=== PATIENT | male | born 1960 ===

== ENCOUNTER 2017-07-18 00:39 | Emergency (ER) | payer OTHER ==
[2017-07-18] MEDS ORDERED: Sodium Chloride 3% for Inhalation 4 ML VIAL.NEB IH PRN (01:19)
--- NOTE | 2017-07-18 01:21 | ED PDOC ---
Lower Extremity Pain/Injury Chief Complaint (Provider): "my foot hurts and im coughing up blood" Additional Complaint(s): 56 y/o male, with unknown medical history, presents via EMS for evaluation of left foot pain, hemoptysis, and SOB. Pt underwent ruptured Left achilles tendon repair in [place] in mar 2017. For the last 15 days he has noticed worsening pain, swelling, and erythema of his left ankle and foot. No hx of traumatic injury or wound. Pain gradaully worsened to 5/10, intermittent, worse with ambulation. Unable to totally weight bear. He also noticed worsening patches of redness around his ankle and foot. Pt also reports cough, sob and hemoptysis. These symptoms have been going on for several months now. No hx of sick contacts exposure, [place], no fever/chills, weight loss, night sweats. No other complaints. PMD: none PsurgHx: achilles tendon repair Mar 2017 PMHx: unknown, never been checked by ALL: NKDA Social: denies ETOH abuse, former smoker, approx 4-5 ciggarettes per day for 5- 6 years, quit 4 years ago. Unknown work exposure. No drugs FamilyHx: unknown family hx <Yomi Mcintosh - Last Filed: 07/19/17 08:44> <Johnathan Burrell - Last Filed: 07/19/17 17:58> Time Seen by Provider: 07/18/17 00:50 Chief Complaint (Nursing): Lower Extremity Problem/Injury Supervising Attending Note - Supervising Attending Note The Documented history was done by the: Physician Space Sciences Director, Attending Physician The documented physical exam was done by the: Physician Space Sciences Director, Attending Physician The documented procedures were done by the: Physician Space Sciences Director, Attending Physician - Attestation: I have personally seen and examined this patient.: Yes I have fully participated in the care of the patient.: Yes I have reviewed all pertinent clinical information, including history, physical exam and plan: Yes <Johnathan Burrell - Last Filed: 07/19/17 17:58> Past Medical History Reviewed: Historical Data, Nursing Documentation, Vital Signs Vital Signs: Last Vital Signs Temp 97.8 F 07/18/17 00:46 Pulse 78 07/18/17 00:46 Resp 18 07/18/17 00:46 BP 121/78 07/18/17 00:46 Pulse Ox 99 07/18/17 00:46 - Family History Family History: States: Unknown Family Hx - Immunization History Hx Tetanus Toxoid Vaccination: No Hx Influenza Vaccination: No Hx Pneumococcal Vaccination: No <Yomi Mcintosh - Last Filed: 07/19/17 08:44> Reviewed: Historical Data Vital Signs: Last Vital Signs Temp 97.8 F 07/18/17 00:46 Pulse 78 07/18/17 00:46 Resp 18 07/18/17 00:46 BP 121/78 07/18/17 00:46 Pulse Ox 99 07/18/17 01:55 - Medical History PMH: No Chronic Diseases - Surgical History Surgical History: No Surg Hx <Johnathan Burrell - Last Filed: 07/19/17 17:58> - Home Medications Home Medications: Ambulatory Orders Medication Instructions Recorded Cephalexin [cephalexin] 500 mg PO TID #21 cap 07/18/17 Clotrimazole [Athlete's Foot] 14.2 gm TP DAILY #30 cream..g. 07/18/17 Sulfamethoxazole/Trimethoprim 1 tab PO BID #14 tab 07/18/17 [Bactrim DS 800 mg-160 mg] - Allergies Allergies/Adverse Reactions: Allergies Allergy/AdvReac Type Severity Reaction Status Date / Time No Known Allergies Allergy Unverified 01/31/14 07:23 Wells Criteria for PE - Wells Criteria for Pulmonary Embolism Clinical Signs and Symptoms of DVT: Yes P.E is #1 Diagnosis, or Equally Likely: No Heart Rate >100: No Immobilization at least 3 days;Surgery previous 4 weeks: No Previous, objectively diagnosed PE or DVT: No Hemoptysis: Yes Malignancy w/treatment within 6 months, or palliative: No Total Score: 4 <Yomi Mcintosh - Last Filed: 07/19/17 08:44> - Wells Criteria for Pulmonary Embolism Clinical Signs and Symptoms of DVT: Yes Hemoptysis: Yes Total Score: 4 <Johnathan Burrell - Last Filed: 07/19/17 17:58> Review of Systems Constitutional: Negative for: Fever, Chills, Sweats, Weight loss Eyes: Negative for: Vision Change ENT: Negative for: Nose Discharge, Nose Congestion, Throat Pain, Throat Swelling Cardiovascular: Negative for: Chest Pain, Palpitations, Orthopnea, Light Headedness Respiratory: Positive for: Cough, Shortness of Breath, Hemoptysis, SOB with Exertion, Sputum. Negative for: Pleuritic Pain, Wheezing Gastrointestinal: Negative for: Nausea, Vomiting, Abdominal Pain, Diarrhea, Constipation, Melena, Hematochezia, Hematemesis Genitourinary Male: Negative for: Dysuria, Frequency, Incontinence, Hematuria Musculoskeletal: Positive for: Leg Pain, Foot Pain. Negative for: Neck Pain, Shoulder Pain, Arm Pain, Back Pain Skin: Positive for: Rash Neurological: Negative for: Weakness, Numbness, Incoordination, Confusion Psych: Negative for: Anxiety, Depression, Suicidal ideation <Yomi Mcintosh - Last Filed: 07/19/17 08:44> ROS Statement: Except As Marked, All Systems Reviewed And Found Negative <Johnathan Burrell - Last Filed: 07/19/17 17:58> Physical Exam - Reviewed Nursing Documentation Reviewed: Yes Vital Signs Reviewed: Yes - Physical Exam Appears: Positive for: Non-toxic, No Acute Distress Head Exam: Positive for: ATRAUMATIC, NORMAL INSPECTION, NORMOCEPHALIC Skin: Positive for: Normal Color, Warm, Dry Eye Exam: Positive for: EOMI, PERRL. Negative for: Conjunctival injection, Scleral icterus ENT: Positive for: Normal ENT Inspection, Pharynx Is (clear ). Negative for: Nasal Congestion, Pharyngeal Erythema, Tonsillar Exudate Neck: Positive for: Normal, Painless ROM, Supple. Negative for: Pain On Movement Of Neck Cardiovascular/Chest: Positive for: Regular Rate, Rhythm. Negative for: Chest Non Tender, Edema, Gallop, JVD, Murmur, Bradycardia, Ectopy Respiratory: Positive for: Normal Breath Sounds, Decreased Breath Sounds (b/l lower lung taylor ). Negative for: Crackles, Rales, Rhonchi, Stridor, Wheezing , Respiratory Distress, Plerual Rub Pulses-Dorsalis Pedis (L): 2+ Pulses-Dorsalis Pedis (R): 2+ Pulses-Radial (L): 2+ Pulses-Radial (R): 2+ Gastrointestinal/Abdominal: Positive for: Normal Exam, Bowel Sounds (normal BS) , Soft. Negative for: Tenderness, Organomegaly, Mass, Distended, Guarding Back: Negative for: L CVA Tenderness, R CVA Tenderness Extremity: Positive for: Tenderness (posterior left ankle, left lateral aspect of foot ), Pedal Edema (left ankle/foot edema. Nonpitting. Left ankle/foot warmer than right. Erythematous with cellulitic changes ), Calf Tenderness ( left calf tenderness. 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, Oriented <Yomi Mcintosh - Last Filed: 07/19/17 08:44> - Reviewed Nursing Documentation Reviewed: Yes <Johnathan Burrell - Last Filed: 07/19/17 17:58> - Laboratory Results Result Diagrams: 07/18/17 02:45 07/18/17 02:45 - ECG O2 Sat by Pulse Oximetry: 99 - Progress ED Course And Treament: DD: left foot cellulitis, osetomylelitis, DVT, PE, pneumonia, tuberculosis, lung malignancy Plan: CBC CMP VBG Shock panel blood culture sputum culture coags EKG CTA ANGIO Left ankle/foot Xray podiatry consult pending <Yomi Mcintosh - Last Filed: 07/19/17 08:44> - Laboratory Results Result Diagrams: 07/18/17 02:45 07/18/17 02:45 <Johnathan Burrell - Last Filed: 07/19/17 17:58> Medical Decision Making Medical Decision Makin Patient is seen by podiatry resident and cleared for discharge with dx cellulitis. [address] reviewed and reveals no PE. 0630 Patient still complaining of regurgitation, cough, halitosis, smelly breath , and throat discomfort in addition to coughing up bloody sputum. Considering Zenker diverticulum. CT neck ordered. <Johnathan Burrell - Last Filed: 07/19/17 17:58> Disposition <Yomi Mcintosh - Last Filed: 07/19/17 08:44> - Patient ED Disposition Is Patient to be Admitted: Transfer of Care Doctor Will See Patient In The: Office Counseled Patient/Family Regarding: Studies Performed, Diagnosis, Need For Followup - Disposition Disposition: Transfer of Care Disposition Time: 07:00 Patient Signed Over To: Kristian Rico <Johnathan Burrell Saul - Last Filed: 07/19/17 17:58> - Clinical Impression Clinical Impression: Cellulitis of left ankle, Hemoptysis, Tinea pedis - Disposition Referrals: [facility] [Outside] (2 to 3 days) Condition: GOOD Additional Instructions: Take your medications as instructed. Follow up with your PCP in 2-3 days. Prescriptions: Cephalexin [cephalexin] 500 mg PO TID #21 cap Clotrimazole [Athlete's Foot] 14.2 gm TP DAILY #30 cream..g. Sulfamethoxazole/Trimethoprim [Bactrim DS 800 mg-160 mg] 1 tab PO BID #14 tab Instructions: Coughing up Blood, Cellulitis (Skin Infection), Adult (DC) Forms: [employer] (South African) Print Language: COSTA RICAN
--- NOTE | 2017-07-18 02:46 | CP.PCM.PN ---
Subjective - Date & Time of Evaluation Date of Evaluation: 07/18/17 Time of Evaluation: 02:38 - Subjective Subjective: 56M with unknown PMHx seen in ED complaining of left ankle swelling, redness and pain. Patient states that he has noticed these changes over the last three days, especially while walking and says that they have gradually become worse. The changes are isolated to his distal left leg, just proximal to the ankle joint and are seen circumfrentially around the leg. Patient denies seeking any medical treatment for these changes up to this point and denies taking any medication to try and alleviate his symptoms. Denies any trauma, ankle twists or falls over the last week. Patient also states that he suffers from anxiety and depression and has been spitting/coughing up blood over the last several months, especially at night. He currently takes Trazadone for his depression and denies any other medications. He denies any known history of gout. He denies any known allergies. He also relates that on 04/15/17 he had an Achilles tendon repair performed in [place], [place] and underwent three sessions of physical therapy but has since stopped going because he lost insurance coverage. He states that he is a former smoker, social EtOH and denies illicit drug use. Patient is AAO x 3 for entirety of the examination. Denies any further pedal complaints at this time. Denies any recent N/V/F/C/CP/SOB/D/ poterior calf pain when squeezed Objective - Vital Signs/Intake and Output Vital Signs (last 24 hours): Temp Pulse Resp BP Pulse Ox 97.8 F 78 18 121/78 99 07/18/17 00:46 07/18/17 00:46 07/18/17 00:46 07/18/17 00:46 07/18/17 01:55 - Constitutional Appears: Well, Non-toxic, No Acute Distress - Extremities Exam Additional comments: LE focused exam: Vasc: DP/PT pulses fully palpable 2/4 b/l. Skin temperature increased to distal left leg. CFT < 3 seconds to all digits b/l. Moderate, 1+ pitting edema noted circumstantially to distal left leg Neuro: Epicritic and protective sensation grossly intact b/l Derm: Moderate erythematous changes noted circumferentially around distal left leg. Mocassin pattern tinea pedis noted to left foot. Well healed cicatrix consistent with previous achilles tendon surgery appreciated to posterior heel and leg. Otherwise, no open lesions, wounds, maceration, xerosis, abnormal pigmentations or abnormal growths noted b/l. Interdigital skin is clean/dry/ intact MSK: Minimal POP to distal anterior leg in area of maximal erythematous changes. No POP to medial or lateral malleoli, styloid process of fifth metatarsal, navicular tuberosity or along the length of extensor, flexor and peroneal tendons. AROM and PROM WNL to both ankle joints. MMT 5/5 b/l in all major muscle groups - Neurological Exam Neurological Exam: Alert, Awake, Oriented x3 - Psychiatric Exam Psychiatric exam: Anxious. absent: Agitated Assessment and Plan - Assessment and Plan (Free Text) Assessment: 56M with stated PMHx of anxiety and depression and otherwise unknown PMHx seen in ED for probable cellulitic changes to distal left leg Plan: Patient seen and evaluated in ED Plan discussed with attending Dr. Evans Charts, labs, vitals reviewed Afebrile, WBC 10.3 Foot and ankle xrays unremarkable for fracture or dislocation, soft tissue edema noted, no soft tissue emphysema seen Per Medicine team, pt to be admitted to hospital for cellulitic changes and hemoptysis Start on empiric IV abx per ED recommendation ID consult ordered - Dr. [place] No dressing needed at this time Podiatry will continue to follow while patient is in house
[2017-07-18 02:48] LABS: MEAN CORPUSCULAR HEMOGLOBIN 32.4 pg (27.0-31.0); MEAN CORPUSCULAR HGB CONC 32.8 g/dL (33.0-37.0); RBC 4.01 Mil/uL (4.40-5.90); RED CELL DISTRIBUTION WIDTH 14.3 % (11.5-14.5); WHITE BLOOD COUNT 10.3 K/uL (4.8-10.8)
[2017-07-18 02:54] LABS: VENOUS BLOOD GAS BASE EXCESS 5.2 mmol/L (0.0-2.0); VENOUS BLOOD GAS PCO2 61 mmHg (40-60); VENOUS BLOOD GAS PO2 18 mm/Hg (30-55); VENOUS BLOOD PH 7.34 (7.32-7.43)
[2017-07-18 02:56] LABS: ALB/GLOB RATIO 1.3 (1.0-2.1); ALT/SGPT 28 U/L (21-72); AST/SGOT 22 U/L (17-59); BLOOD UREA NITROGEN 16 mg/dl (9-20); CALCIUM 9.3 mg/dL (8.4-10.2); GFR AFRICAN-AMERICAN > 60; GFR NON-AFRICAN AMERICAN > 60; PARTIAL THROMBOPLASTIN TIME 30.4 Seconds (25.6-37.1); PROTHROMBIN TIME 11.5 Seconds (9.8-13.1)
[2017-07-18] MEDS ORDERED: Sodium Chloride 0.9% 100 ML ONE (03:10)
[2017-07-18] MEDS ORDERED: Iodixanol 320 MG/ML 100 ML BOTTLE IV ONE (03:10)
[2017-07-18 06:06] VITALS: RESP 16
--- NOTE | 2017-07-18 10:20 | RAD ---
PROCEDURE: Left Foot Radiographs. HISTORY: left foot edema/erythema s/p achilles tendon repair COMPARISON: None. FINDINGS: BONES: Disuse osteopenia is appreciated throughout the left foot with no displaced fracture or definite destructive bony lesion appreciable. JOINTS: No subluxation or dislocation. degenerative changes seen throughout the forefoot midfoot and hindfoot joints diffusely with a mild hallux valgus deformity identified. SOFT TISSUES: Normal. OTHER FINDINGS: None. IMPRESSION: No acute displaced fracture identified. Diffuse osteopenia is appreciated likely on the basis of disuse. Clinically correlate further. Degenerative joint disease is seen diffusely as well. Mild hallux valgus deformity.
--- NOTE | 2017-07-18 10:22 | RAD ---
PROCEDURE: Left Ankle Radiographs. HISTORY: left ankle swelling/erythema COMPARISON: None FINDINGS: BONES: No prominent fracture appreciate however there are at least 3 punctate hyperdensities seen medial and inferior to the medial malleolus which may reflect heterotopic soft tissue calcification. They are not felt to represent avulsion or chip fractures due to their tiny size and relatively distant location from the medial malleolus. Clinically correlate nevertheless. Disuse osteopenia is appreciated. JOINTS: Limited degenerative sclerosis of the tibiotalar joint cortical surfaces is identified compatible degenerative joint disease. No subluxation or dislocation. Mild soft tissue edema surrounds the left ankle joint diffusely. SOFT TISSUES: As above. OTHER FINDINGS: None. IMPRESSION: No acute fracture or dislocation. Diffuse disuse osteopenia is appreciated at the hindfoot/ ankle bony anatomy as well limited degenerative joint disease. Heterotopic soft tissue calcifications are favored over chip or avulsion fractures medial and inferior to the medial malleolus.
--- NOTE | 2017-07-18 10:33 | CT ---
NECK CT WITHOUT CONTRAST Helical CT of the neck is not performed without intravenous contrast as requested. There is a clinical history of throat pain and food regurgitation. No prior neck CT available for comparison. Total radiation dose: 452.23 mGy-cm. This CT exam was performed using one or more of the following dose reduction techniques: Automated exposure control, adjustment of the mA and/or kV according to patient size, and/or use of iterative reconstruction technique. Study is compromised due to the lack of intravenous contrast. Residual food is identified at the upper 3rd of the esophagus as imaged. The initial proximal cm of the proximal esophagus appear collapsed however. No retained radiodense foreign body is appreciated in the pharynx, larynx or upper esophagus. There is asymmetry at the left side of the base of the tongue with the uvula appearing to abut this area. Lack images contrast limits definition of this area of soft tissue. Direct visualization is recommended here. Oral cavity appears grossly nonfocal otherwise as well as the remainder of the pharynx. Larynx diffusely unremarkable as well as the trachea. The salivary glands and thyroid gland appear grossly nonfocal an incidental views of the skull base and orbits are unremarkable as imaged as well as the thoracic inlet. Fibrotic changes are suggested the left pulmonary apex versus linear atelectasis. IMPRESSION: No retained radiodense foreign body is appreciated in the visualized esophagus though residual debris or food is seen at the upper 3rd of the esophagus except for the proximal most segment which is collapsed. Mild soft tissue asymmetry at the left base of the tongue may be a function of the uvula abutting this area. The lack of intravenous contrast limits interpretation. Consider direct visualization for follow-up or elective neck CT with contrast.
--- NOTE | 2017-07-18 11:04 | ED PDOC ---
- Laboratory Results Result Diagrams: 07/18/17 02:45 07/18/17 02:45 - ECG O2 Sat by Pulse Oximetry: 98 - Progress ED Course And Treament: discussed with podiatry no indication for admission likely just tinea pedis, but will follow up. pt has multiple sx and advise close f/u in clinic. pt tolerated po here w/o issues. all findings communicated by tunisian speaking nurse trenton. all of pt's questions were answered and pt agree's with plan. pt leaves ambulatory and in good spirits. Re-evaluation Time: 10:00 Condition: Improved Medical Decision Making Medical Decision Making: NECK CT WITHOUT CONTRAST Helical CT of the neck is not performed without intravenous contrast as requested. There is a clinical history of throat pain and food regurgitation. No prior neck CT available for comparison. Total radiation dose: 452.23 mGy-cm. This CT exam was performed using one or more of the following dose reduction techniques: Automated exposure control, adjustment of the mA and/or kV according to patient size, and/or use of iterative reconstruction technique. Study is compromised due to the lack of intravenous contrast. Residual food is identified at the upper 3rd of the esophagus as imaged. The initial proximal cm of the proximal esophagus appear collapsed however. No retained radiodense foreign body is appreciated in the pharynx, larynx or upper esophagus. There is asymmetry at the left side of the base of the tongue with the uvula appearing to abut this area. Lack images contrast limits definition of this area of soft tissue. Direct visualization is recommended here. Oral cavity appears grossly nonfocal otherwise as well as the remainder of the pharynx. Larynx diffusely unremarkable as well as the trachea. The salivary glands and thyroid gland appear grossly nonfocal an incidental views of the skull base and orbits are unremarkable as imaged as well as the thoracic inlet. Fibrotic changes are suggested the left pulmonary apex versus linear atelectasis. IMPRESSION: No retained radiodense foreign body is appreciated in the visualized esophagus though residual debris or food is seen at the upper 3rd of the esophagus except for the proximal most segment which is collapsed. Mild soft tissue asymmetry at the left base of the tongue may be a function of the uvula abutting this area. The lack of intravenous contrast limits interpretation. Consider direct visualization for follow-up or elective neck CT with contrast. Disposition Counseled Patient/Family Regarding: Studies Performed, Diagnosis, Need For Followup - Clinical Impression Clinical Impression: Cellulitis of left ankle, Hemoptysis, Tinea pedis - POA Present On Arrival: None - Disposition Referrals: [facility] [place] [Outside] (2 to 3 days) Disposition: Routine/Home Disposition Time: 11:02 Condition: GOOD Additional Instructions: Take your medications as instructed. Follow up with your PCP in 2-3 days. Prescriptions: Cephalexin [cephalexin] 500 mg PO TID #21 cap Clotrimazole [Athlete's Foot] 14.2 gm TP DAILY #30 cream..g. Sulfamethoxazole/Trimethoprim [Bactrim DS 800 mg-160 mg] 1 tab PO BID #14 tab Instructions: Coughing up Blood, Cellulitis (Skin Infection), Adult (DC) Forms: [email or web address] (Faroese) Print Language: DANISH
[2017-07-18 11:26] VITALS: BP 116/59; PULSE 86; TEMP 97.9
--- NOTE | 2017-07-18 12:52 | CT ---
PROCEDURE: CT Chest with contrast (Pulmonary Angiogram) HISTORY: hemoptysis, calf pain, SOB COMPARISON: None available. TECHNIQUE: Axial computed tomography images were obtained of the chest in the pulmonary arterial phase of enhancement. Coronal and sagittal reformatted images were created and reviewed. Intravenous contrast dose: Omnipaque 320, 90 cc Radiation dose: Total exam DLP = 383.18 mGy-cm. This CT exam was performed using one or more of the following dose reduction techniques: Automated exposure control, adjustment of the mA and/or kV according to patient size, and/or use of iterative reconstruction technique. FINDINGS: PULMONARY ARTERIES: Unremarkable. No pulmonary embolism. AORTA: No acute findings. No thoracic aortic aneurysm. LUNGS: Fibrotic changes seen the bilateral apices as well as at the left upper lobe sella more inferior than the apex alone. No definite alveolitis bilaterally. Central airways appear clear. No definitive pulmonary mass identified. Limited ground-glass opacity seen the bilateral bases of the lower lobes. PLEURAL SPACES: Unremarkable. No effusion or pneuomothorax. HEART: Unremarkable. No cardiomegaly. No significant pericardial effusion. LYMPH NODES: No lymphadenopathy. BONES, CHEST WALL: Unremarkable. No fracture or destructive lesion OTHER FINDINGS: Unremarkable. IMPRESSION: 1. No CT evidence of pulmonary embolus throughout. 2. Nonspecific ground-glass opacity in the bilateral lower lobes in the bases. No alveolitis, pleural or pericardial effusion. No pneumothorax or significant lymphadenopathy. Concordant preliminary report from [facility], 07/18/2017.
--- NOTE | 2017-07-18 13:32 | US ---
HISTORY: left leg swelling s/p ankle surgery . PRIORS: None. FINDINGS: 2-D, color and duplex Doppler analysis of the lower extremity venous circulation using routine protocol from the femoral veins through the popliteal veins. Venous compressibility: Normal. Flow and augmentation patterns: Normal. Visualized veins upper third of calf: Normal. Rush cyst: None. Incidental finding(s): Left lower extremity, ankle and calf edema consistent with recent surgery IMPRESSION: No sonographic or Doppler evidence for DVT in left lower extremity.
[2017-07-19 08:39] VITALS: O2SAT 99
--- NOTE | 2017-07-19 11:50 | CARD ---
APPROVED REPORT EKG Measurement Heart [id number] <Conclusion> Normal sinus rhythm Normal ECG
== END 2017-07-18 11:26 | disposition home or self-care (01) ==
LOC: H.ER 00:39
DX: L03.116 Cellulitis of left lower limb (principal); R04.2 Hemoptysis; B35.3 Tinea pedis; Z86.59 Personal history of other mental and behavioral disorders; M20.12 Hallux valgus (acquired), left foot; Z87.891 Personal history of nicotine dependence
CPT/HCPCS: 70490; 71275; 73610; 73630; 80053; 82803; 84145; 85027; 85610; 85730; 87040; 87070; 93005; 93971; 99285; Q9967

== ENCOUNTER 2017-07-20 06:45 | Emergency (ER) | payer OTHER ==
--- NOTE | 2017-07-20 07:27 | ED PDOC ---
HPI: General Adult Time Seen by Provider: 07/20/17 07:05 Chief Complaint (Nursing): Dizziness/Lightheaded Chief Complaint (Provider): Generalized weakness History Per: Patient History/Exam Limitations: no limitations Onset/Duration Of Symptoms: Hrs (4:00am today) Current Symptoms Are (Timing): Still Present Recently: Seen In ED Additional Complaint(s): Ke Agudelo is a 56 year old male, with no significant past medical history , who presents to the emergency department complaining of generalized weakness, headache and diarrhea onset since 4:00am today. Patient is also complaining of shortness of breath and anxiety. Patient reports he has been taking Bactrim and Cephalexin for x2 days after he was seen in the ED for left leg pain and swelling. Patient states he had a tendon repair surgery in his leg after he fell from stairs. He denies any fever, chills, vomiting or chest pain. No further medical complaints. PMD: None provided. Past Medical History Reviewed: Historical Data, Nursing Documentation, Vital Signs Vital Signs: Last Vital Signs Temp 98.0 F 07/20/17 10:19 Pulse 77 07/20/17 10:19 Resp 16 07/20/17 10:19 BP 100/67 07/20/17 10:19 Pulse Ox 98 07/20/17 14:30 - Medical History PMH: No Chronic Diseases - Family History Family History: States: Unknown Family Hx - Living Arrangements Living Arrangements: Alone - Social History Ex-Smoker (has not smoked in the last 12 months): Yes Alcohol: None Drugs: Denies - Immunization History Hx Tetanus Toxoid Vaccination: No Hx Influenza Vaccination: No Hx Pneumococcal Vaccination: No - Home Medications Home Medications: Ambulatory Orders Medication Instructions Recorded Cephalexin [cephalexin] 500 mg PO TID #21 cap 07/18/17 Clotrimazole [Athlete's Foot] 14.2 gm TP DAILY #30 cream..g. 07/18/17 Sulfamethoxazole/Trimethoprim 1 tab PO BID #14 tab 07/18/17 [Bactrim DS 800 mg-160 mg] - Allergies Allergies/Adverse Reactions: Allergies Allergy/AdvReac Type Severity Reaction Status Date / Time No Known Allergies Allergy Unverified 01/31/14 07:23 Review of Systems ROS Statement: Except As Marked, All Systems Reviewed And Found Negative Constitutional: Positive for: Weakness (generalized). Negative for: Fever, Chills Cardiovascular: Negative for: Chest Pain Respiratory: Positive for: Shortness of Breath Gastrointestinal: Positive for: Diarrhea Neurological: Positive for: Headache Physical Exam - Reviewed Nursing Documentation Reviewed: Yes Vital Signs Reviewed: Yes - Physical Exam Appears: Positive for: Well (anxious), Non-toxic, No Acute Distress. Negative for: Uncomfortable Head Exam: Positive for: ATRAUMATIC, NORMAL INSPECTION, NORMOCEPHALIC Skin: Positive for: Normal Color, Warm, Dry Eye Exam: Positive for: Normal appearance Neck: Positive for: Painless ROM, Supple Cardiovascular/Chest: Positive for: Regular Rate, Rhythm. Negative for: Murmur Respiratory: Positive for: Normal Breath Sounds (clear to auscultation). Negative for: Respiratory Distress (speaking full sentences) Gastrointestinal/Abdominal: Positive for: Normal Exam, Soft. Negative for: Tenderness Extremity: Positive for: Normal ROM. Negative for: Tenderness, Deformity, Swelling Neurologic/Psych: Positive for: Alert, Oriented. Negative for: Motor/Sensory Deficits - Laboratory Results Result Diagrams: 07/20/17 07:39 07/20/17 07:39 - ECG O2 Sat by Pulse Oximetry: 98 (RA) Pulse Ox Interpretation: Normal Medical Decision Making Medical Decision Making: Initial Impression: Initial Plan: --BMP --CBC w/ differential --Sodium Chloride 1,000 ml IV 1,000 mls/hr --Urinalysis --Reevaluation -On physical exam, pt appears anxious. Scribe Attestation: Documented by Tomer Costa, acting as a scribe for Rosalind Byrd MD Provider Scribe Attestation: All medical record entries made by the Scribe were at my direction and personally dictated by me. I have reviewed the chart and agree that the record accurately reflects my personal performance of the history, physical exam, medical decision making, and the department course for this patient. I have also personally directed, reviewed, and agree with the discharge instructions and disposition. Disposition - Clinical Impression Clinical Impression: Somatic complaints, multiple - Patient ED Disposition Is Patient to be Admitted: No Doctor Will See Patient In The: Office Counseled Patient/Family Regarding: Diagnosis, Need For Followup - Disposition Disposition: Routine/Home Disposition Time: 10:00 Condition: STABLE Instructions: Medication Safety, Adult Forms: [facility] (Taiwanese) Print Language: BELARUSIAN - POA Present On Arrival: None
[2017-07-20] MEDS ORDERED: Sodium Chloride 0.9% 1,000 ML IV STA (07:28)
[2017-07-20 07:49] LABS: BASO % 0.4 % (0.0-2.0); EOS # 0.1 K/uL (0.0-0.7); EOS % 1.8 % (0.0-4.0); HEMOGLOBIN 13.6 g/dL (12.0-18.0); LYMPH # 1.4 K/uL (1.0-4.3); LYMPH % 19.3 % (20.0-40.0); MEAN CELL VOLUME 98.3 fl (80.0-94.0); MEAN CORPUSCULAR HEMOGLOBIN 33.4 pg (27.0-31.0); MEAN PLATELET VOLUME 8.4 fl (7.2-11.7); MONO # 0.6 K/uL (0.0-0.8); MONO % 7.9 % (0.0-10.0); NEUT # 5.1 K/uL (1.8-7.0); NEUT % 70.6 % (50.0-75.0); RBC 4.09 Mil/uL (4.40-5.90); RED CELL DISTRIBUTION WIDTH 14.4 % (11.5-14.5); WHITE BLOOD COUNT 7.2 K/uL (4.8-10.8)
[2017-07-20 07:58] LABS: BLOOD UREA NITROGEN 14 mg/dl (9-20); CALCIUM 9.1 mg/dL (8.4-10.2); GFR AFRICAN-AMERICAN > 60; GFR NON-AFRICAN AMERICAN > 60
[2017-07-20 08:28] LABS: URINE BILIRUBIN NEGATIVE (NEGATIVE); URINE BLOOD NEGATIVE (NEGATIVE); URINE CLARITY CLEAR (Clear); URINE COLOR STRAW (YELLOW); URINE GLUCOSE (UA) NEG (Normal); URINE LEUKOCYTE ESTERASE NEG Leu/uL (Negative); URINE PROTEIN NEGATIVE (NEGATIVE); URINE UROBILINOGEN 0.2-1.0 mg/dL (0.2-1.0)
[2017-07-20 10:21] VITALS: BP 100/67; PULSE 77; RESP 16; TEMP 98
[2017-07-20 14:30] VITALS: O2SAT 98
== END 2017-07-20 09:50 | disposition home or self-care (01) ==
LOC: H.ER 06:45
DX: F45.9 Somatoform disorder, unspecified (principal); Z87.891 Personal history of nicotine dependence
CPT/HCPCS: 80048; 81003; 85025; 96360; 99283; J7040